=== PATIENT | female | born 1980 | race Caucasian/White ===

== ENCOUNTER → 2018-03-23 13:11 | Outpatient (CLI) | payer OTHER, SELFPAY ==
--- NOTE | 2018-03-23 13:14 | US_ITS ---
MM Dig mamm DX unilat RT CAD, US breast RT complete INDICATION: Right-sided breast lump at 10:00 ORDERING PHYSICIAN: Norris Krueger MD PATIENT AGE: 38 years COMPARISON: None TECHNIQUE: Diagnostic Mammogram along with right breast ultrasound FINDINGS: There is extremely dense breast tissue markedly limiting the exam. A 12 x 6 mm nodular density is present in the lateral aspect of the right breast deep to the placed marker denoting the palpable abnormality. Much better seen on ultrasound. There are scattered calcifications of the right breast. Right breast ultrasound: There is a 1.7 x 1.6 x 0.6 cm oval hypoechoic nodule in the 10:00 region of the right breast. The nodule is not well defined and has heterogeneous echogenicity and lies superficial to the right pectoralis muscle. This nodule is indeterminate and ultrasound-guided fine-needle aspiration/core biopsy is suggested. In addition, there are small cyst in the right breast including a 3 mm cyst at 6:00 and a 5 mm cyst x 7 mm cyst at 10:00 as well as an additional 5 mm cyst at 10:00. IMPRESSION: Palpable abnormality corresponds to an indeterminate solid nodule measuring 1.7 x 1.6 x 0.6 cm. Ultrasound-guided Biopsy is recommended BI-RADS Category: 4 Suspicious Abnormality-Biopsy Considered RECOMMENDED FOLLOW-UP: BIO - BIOPSY RECOMMENDED (A letter has been sent to the patient regarding results of the study.)
== END ==
PROVIDERS: PCP Nurse Practitioner Family; Visit Provider Nurse Practitioner Obstetrics & Gynecology
DX: N63.10 Unspecified lump in the right breast, unspecified quadrant (principal)
CPT/HCPCS: 76641; 77065

== ENCOUNTER → 2018-04-06 09:04 | Outpatient (CLI) | payer OTHER, SELFPAY ==
--- NOTE | 2018-04-06 09:06 | US_ITS ---
FNA w guidance, US breast RT complete HISTORY: Palpable nodule right breast ITS.REASON: Indeterminate solid nodule -Right Breast ORDERING PHYSICIAN: Norris Krueger MD PATIENT AGE: 38 years COMPARISON: 03/23/2018 Prebiopsy ultrasound: Ultrasound performed of the left abnormality for biopsy planning. The nodular density is noted in the subcutaneous region corresponding to the palpable abnormality. TECHNIQUE: The nodule was too superficial to form mammotome biopsy and was extremely mobile and anticipated difficult to perform core biopsy therefore, fine-needle aspiration was performed. Following obtaining informed consent, using aseptic technique and local anesthesia with buffered lidocaine, fine-needle aspiration was performed of the nodule of interest using sonographic guidance. 2 passes were made into the nodule with a 21-gauge needle. Specimen was given to cytology. The patient tolerated the procedure well without evidence of immediate complications and left the ultrasound suite in stable condition. CYTOLOGY:Atypical, scattered atypical loosely cohesive ductal groups IMPRESSION: Fine needle aspiration demonstrates atypical cytology. Excisional biopsy suggested
== END ==
PROVIDERS: PCP Physician Assistant; Visit Provider Nurse Practitioner Obstetrics & Gynecology
DX: N63.10 Unspecified lump in the right breast, unspecified quadrant (principal)
CPT/HCPCS: 10022; 76641

== ENCOUNTER → 2018-04-25 11:40 | Outpatient (CLI) | payer OTHER, SELFPAY ==
[2018-04-25 12:14] LABS: Basophils % 0.4 % (0.1-2.0); Eosinophils # 0.1 K/mm3 (0.0-0.4); Eosinophils % 1.6 % (0.1-12.0); Hematocrit 43.1 % (37.0-47.0); Hemoglobin 13.8 g/dL (12.2-16.2); Mean Corpuscular HGB Conc 32.1 g/dL (31.8-35.4); Mean Corpuscular Hemoglobin 31.8 pg (27.0-31.2); Mean Corpuscular Volume 99.1 fl (81-99); Mean Platelet Volume 7.5 fl (7.4-10.4); Monocytes # 0.4 K/mm3 (0.1-1.0); Monocytes % 4.5 % (1.7-9.3); Neutrophils # 6.4 K/mm3 (1.8-7.8); Neutrophils % 71.4 % (37.0-80.0); Platelet Count 296 K/mm3 (142-424); Red Blood Count 4.35 M/mm3 (4.20-5.40); Red Cell Distribution Width 13.4 % (11.5-17.5); White Blood Count 8.9 K/mm3 (4.8-10.8)
[2018-04-25 12:45] LABS: Anion Gap 13.3 mEq/L (5-15); Blood Urea Nitrogen 13 mg/dL (7-18); Carbon Dioxide 31 mmol/L (21.0-32.0); Chloride 103 mmol/L (98-107); Creatinine,Serum 0.67 mg/dL (0.55-1.02); Estimated Glomerular Filt Rate 100 ml/min (>60); GFR (African American) 121 ML/MIN (>60); Glucose 95 mg/dL (74-106); Potassium 4.3 mmoL/L (3.5-5.1); Sodium 143 mmol/L (136-145)
== END ==
PROVIDERS: Visit Provider Surgery
DX: N63.10 Unspecified lump in the right breast, unspecified quadrant (principal)
CPT/HCPCS: 36415; 80048; 85025

== ENCOUNTER → 2018-07-11 15:28 | Outpatient (CLI) | payer OTHER, SELFPAY ==
--- NOTE | 2018-07-11 15:30 | US_ITS ---
US breast RT complete INDICATION: Palpable abnormality at the 11-12 o'clock region ORDERING PHYSICIAN: Carlton Dhillon MD PATIENT AGE: 38 years COMPARISON: 03/23/2018 TECHNIQUE: Ultrasound right breast with axilla FINDINGS: General survey performed of the right breast. At the region of the palpable abnormality there is a 3 x 1.7 x 0.8 cm area of heterogeneous echogenicity superficial to the chest wall musculature. On the inferior margin of this region there is a 13 x 6 mm area of heterogeneous echogenicity which has a somewhat similar appearance to the nodule noted on 03/23/2018.. Small nodes present in the axilla. IMPRESSION: Isoechoic region in the surgical bed which may represent postsurgical change such as hematoma or scarring. There is heterogeneous echogenicity along the inferior margin of this area which could represent residual nodule as noted on the previous exam. Please correlate with patient's pathology from the previous surgery. BI-RADS Category: 3 Probably Benign Finding Short Term Follow-up Recommendations: Continued follow-up recommended to confirm stability or resolution. Also suggest correlation with physical exam and with patient's pathology from the previous surgery (A letter has been sent to the patient regarding results of the study.)
== END ==
PROVIDERS: PCP Nurse Practitioner Family; Visit Provider Surgery
DX: N63.10 Unspecified lump in the right breast, unspecified quadrant (principal)
CPT/HCPCS: 76641

== ENCOUNTER → 2023-04-05 15:34 | Outpatient (CLI) | payer OTHER, SELFPAY ==
--- NOTE | 2023-04-05 15:35 | US_ITS ---
PROCEDURE INFORMATION: Exam: US Right Breast, Complete Exam date and time: 04/05/2023 3:32 PM Age: 43 years old Clinical indication: Palpable abnormality in the right breast TECHNIQUE: Imaging protocol: Complete ultrasound of all four quadrants of the right breast and the retroareolar regions, including ultrasound of the axilla when performed. COMPARISON: BREASTRT US breast RT complete 07/11/2018 3:31 PM FINDINGS: Breast: Sonographic images of the right breast including the retroareolar region, all 4 quadrants and the axilla do not demonstrate any solid masses. Few scattered cysts are present including a 0.4 cm cyst in the 11 o'clock axis 2 cm from the nipple corresponding to the patient's complaint of a palpable abnormality. Cluster of cysts with a combined dimension of 0.5 cm in the 2 o'clock periareolar region. Excisional biopsy site in the upper outer quadrant demonstrates a 0.8 cm cyst or seroma. No architectural distortion or acoustical shadowing. No skin thickening or axillary adenopathy. IMPRESSION: Palpable abnormality in the right breast corresponds to a benign cyst.Further evaluation of a palpable abnormality should be based on clinical grounds regardless of radiographic findings or lack thereof.Annual bilateral mammographic screening is recommended at the current time if the patient has not already done so ASSESSMENT: BI-RADS Category 2: Benign
== END ==
PROVIDERS: PCP Nurse Practitioner Obstetrics & Gynecology; Visit Provider Nurse Practitioner Obstetrics & Gynecology
DX: N60.11 Diffuse cystic mastopathy of right breast (principal)
CPT/HCPCS: 76641